=== PATIENT | female | born 1975 | race Caucasian/White ===

== ENCOUNTER 2016-08-13 18:48 | Emergency (ER) | payer OTHER ==
[~2016-08-13] VITALS: Ht 167.6 cm; Wt 64.0 kg
[2016-08-13 18:55] VITALS: BP 140/86; PULSE 72; RESP 16; TEMP 98.6; O2SAT 98
--- NOTE | 2016-08-13 19:02 | PD ---
HPI Chief Complaint: Laceration/Skin Injury Time Seen by Provider: 19:00 Travel History International Travel<30 days: No Contact w/Intl Traveler<30days: No Traveled to known affect area: No History of Present Illness HPI 40-year-old female presents the emergency department with laceration to the proximal left dorsal lateral second digit. Patient cut it with a knife while trying to cut pineapple in the kitchen. She has no loss of function. She denies numbness or tingling distal to the wound. Bleeding is currently controlled. Pain is 5/10. Patient is unsure of her last tetanus shot. She has no known drug allergies. PFSH Past Medical History Diminished Hearing: No ?: Not LMP: Now Past Surgical History Section: Yes Social History Alcohol Use: No Tobacco Use: No Substance Use: No Allergies-Medications (Allergen,Severity, Reaction): Coded Allergies: No Known Allergies (Unverified , 08/13/16) Reported Meds & Prescriptions Reported Meds & Active Scripts Active No Active Prescriptions or Reported Medications Review of Systems Except as stated in HPI: all other systems reviewed are Neg General / Constitutional: No: Fever Eyes: No: Visual changes HENT: No: Headaches Cardiovascular: No: Chest Pain or Discomfort Respiratory: No: Shortness of Breath Gastrointestinal: No: Abdominal Pain Genitourinary: No: Dysuria Musculoskeletal: No: Pain Skin: No Rash Neurologic: No: Weakness Psychiatric: No: Depression Endocrine: No: Polydipsia Hematologic/Lymphatic: No: Easy Bruising Physical Exam Narrative GENERAL: Patient is in mild distress. SKIN: Warm and dry. Normal color. Normal turgor. Patient is superficial linear laceration to the proximal dorsal lateral left second digit. HEAD: Atraumatic. Normocephalic. EYES: Pupils equal and round. No scleral icterus. No injection or drainage. ENT: No nasal bleeding or discharge. Mucous membranes pink and moist. Pharynx is normal. NECK: Trachea midline. Supple nontender. CARDIOVASCULAR: Regular rate and rhythm. RESPIRATORY: No accessory muscle use. MUSCULOSKELETAL: Extremities without clubbing, cyanosis, or edema. No obvious deformities. Full range of motion and sensation. NEUROLOGICAL: Awake and alert. No obvious cranial nerve deficits. Motor grossly within normal limits. Five out of 5 muscle strength in the arms and legs. Normal speech. PSYCHIATRIC: Appropriate mood and affect; insight and judgment normal. Data Data Last Documented VS Vital Signs Date Time Temp Pulse Resp B/P Pulse Ox O2 Delivery O2 Flow Rate FiO2 08/13/16 18:55 98.6 72 16 140/86 98 Orders Tetanus/Diphtheria Tox Adult (Tetanus/Di (08/13/16 19:15) Lidocaine 1% Inj (Xylocaine 1% Inj) (08/13/16 19:15) Lidocaine 1% Inj (50 Ml) (Xylocaine 1% I (08/13/16 19:15) MDM Medical Decision Making Medical Screen Exam Complete: Yes Emergency Medical Condition: Yes Differential Diagnosis Left finger wound. Laceration. Need for tetanus Narrative Course Patient is medically stable at time of exam. Patient is given tetanus booster IM. Laceration was repaired after local anesthetic applied. Sterile dressing is applied by nursing staff. Dressing is to remain in place for 72 hours and kept clean and dry. Sutures to remain for 7 days. Patient can return here in 7 days for suture removal or sooner if any problems arise. Patient can shower after 72 hours but no prolonged water exposure or swimming until sutures are removed. Procedures Procedure Narrative LACERATION LOCATION: Left index finger LENGTH: 2 cm NUMBER OF STITCHES/SANDER: 5 interrupted vertical mattress REPAIR: The area of the laceration was prepped with Betadine and sterilely draped. The laceration was infiltrated with 3 mL was 1% lidocaine. The wound was copiously irrigated and explored without evidence of foreign body, tendon injury or neurovascular injury. The wound was closed using 6-0 Prolene. This was a single layer repair. A sterile dressing was applied. The patient was advised to keep the dressing clean and dry. Patient tolerated the procedure well. Diagnosis Primary Impression: Laceration of left index finger Referrals: Primary Care Physician Patient Instructions: Finger Laceration (ED), General Instructions, Tetanus (ED ) Additional Instructions: Patient is given tetanus booster IM. Laceration was repaired after local anesthetic applied. Sterile dressing is applied by nursing staff. Dressing is to remain in place for 72 hours and kept clean and dry. Sutures to remain for 7 days. Patient can return here in 7 days for suture removal or sooner if any problems arise. Patient can shower after 72 hours but no prolonged water exposure or swimming until sutures are removed. Med/Other Pt SpecificInfo: No Meds Exist/No RX given Scripts No Active Prescriptions or Reported Meds Disposition: 01 DISCHARGE HOME Condition: Dima Knox August 13, 2016 19:02
[2016-08-13] MEDS ORDERED: LIDOCAINE HCL 1% 50 ML VIAL INFIL ONE (19:15)
[2016-08-13] MEDS ORDERED: LIDOCAINE HCL 1% 30 ML VIAL INFIL ONE (19:15)
[2016-08-13] MEDS ORDERED: TETANUS/DIPHTHERIA TOXOID ADULT 0.5 ML VIAL IM ONE (19:15)
== END 2016-08-13 19:40 | disposition home or self-care (01) ==
LOC: PHEFT 18:48
DX: S61.211A Laceration without foreign body of left index finger without damage to nail, initial encounter (principal); Z23 Encounter for immunization; W26.0XXA Contact with knife, initial encounter; Y93.G1 Activity, food preparation and clean up; Y92.000 Kitchen of unspecified non-institutional (private) residence as the place of occurrence of the external cause
CPT/HCPCS: 12001; 90471; 90714